=== PATIENT | male | born 1985 | race Two or more races ===

== ENCOUNTER 2023-10-13 00:42 | Emergency (ER) | payer BC, OTHER ==
[~2023-10-13] VITALS: Ht 172.7 cm; Wt 180.2 kg
[2023-10-13 02:05] VITALS: PULSE 103; RESP 17; O2SAT 92
[2023-10-13] MEDS: ONDANSETRON HCL 4 MG/2 ML VIAL IV ONE (02:18)
[2023-10-13] MEDS: MORPHINE SULFATE 4 MG/ML SYR/VIAL IV ONE (02:19)
[2023-10-13] MEDS: SODIUM CHLORIDE 0.9% 1,000 ML IV ONE (02:19)
[2023-10-13 02:45] LABS: Basophils # (auto) 0 10 ^3/uL (0-0.2); Basophils % (auto) 0.1 % (0.0-2.0); Eosinophils # (auto) 0 10 ^3/uL (0-0.8); Eosinophils % (auto) 0.2 % (0.0-7.0); Hematocrit 45.3 % (41.0-53.0); Hemoglobin 15.9 g/dL (13.5-17.5); Lymphocytes # (auto) 1.4 10 ^3/uL (0.4-5.4); Mean Corpuscular Hemoglobin 30.1 pg (28.0-32.0); Mean Corpuscular Hgb Conc. 35.1 g/dL (32.0-36.0); Mean Corpuscular Volume 85.7 fL (80.0-100.0); Monocytes # (auto) 0.9 10 ^3/uL (0-1.3); Monocytes % (auto) 8.8 % (0.0-12.0); Neutrophils # (auto) 8.1 10 ^3/uL (1.6-8.6); Neutrophils % (auto) 77.9 % (37.0-80.0); Nucleated Red Blood Cells % 0.1 %; Red Blood Cells 5.28 10^6/uL (4.5-5.90); White Blood Cell 10.4 10^3/uL (4.4-10.8)
[2023-10-13 02:49] LABS: Alanine Aminotransferase 53 U/L (7-40); Alkaline Phosphatase 59 U/L (46-116); Anion Gap 9 (5-15); Aspartate Aminotransferase 27 U/L (13-40); BUN/Creatinine Ratio 11.5 (10.0-20.0); Bilirubin, Total 0.7 mg/dL (0.2-1.0); Blood Urea Nitrogen 9 mg/dL (9-23); Calcium 8.8 mg/dL (8.7-10.4); Carbon Dioxide 27 mmol/L (20-30); Chloride 101 mmol/L (98-107); Glucose 144 mg/dL (74-106); Lipase 31 U/L (12-53); Potassium 3.7 mmol/L (3.5-5.1); Sodium 137 mmol/L (136-145)
[2023-10-13 02:50] LABS: Total Protein 6.9 g/dL (5.7-8.2)
[2023-10-13 04:00] VITALS: BP 103/53; PULSE 89; RESP 22; O2SAT 93
== END 2023-10-13 04:52 | disposition home or self-care (01) ==
LOC: ER 00:42
DX: K85.90 Acute pancreatitis without necrosis or infection, unspecified (principal); R10.11 Right upper quadrant pain
CPT/HCPCS: 36415; 80053; 82150; 83690; 85025; 96361; 96374; 96375; 99285; J2270; J2405; J7030